=== PATIENT | male | born 1975 | race Caucasian/White ===

== ENCOUNTER 2016-09-13 09:11 | Emergency (ER) | payer SELFPAY ==
[~2016-09-13] VITALS: Ht 172.7 cm; Wt 61.0 kg
[~2016-09-13 09:11] MED LIST: CYCL-36 PO; HYDR-3533 PO; MEDR4PAK3 PO; ZOFR4TAB3 SL
[2016-09-13 09:13] VITALS: BP 120/67; PULSE 106; RESP 20; TEMP 98.2; O2SAT 96
--- NOTE | 2016-09-13 10:21 | PD ---
HPI Chief Complaint: Back/ Neck Pain or Injury Time Seen by Provider: 10:21 Travel History International Travel<30 days: No Contact w/Intl Traveler<30days: No Traveled to known affect area: No History of Present Illness HPI 41-year-old male presents to the emergency Department with complaint of midline low back pain and left-sided low back pain that radiates down the back of his left leg. He has history of low back pain with similar symptoms. He denies any recent injury. Reports heavy lifting and straining that exacerbated his back pain. Denies IV drug use or cancer. Denies fever, chills, nausea, vomiting. Denies paresthesias, loss of sensation, decreased range of motion, decreased strength to bilateral lower extremities. Reports the bleeding with a limp to his left leg. Has not taken any medications or drainage from his to alleviate his symptoms. No known allergies. Denies significant past medical history. No other modifying factors or associated signs and symptoms. PFSH Past Medical History Gastrointestinal Disorders: Yes Ulcer: Yes (STOMACH ULCERS ) Tetanus Vaccination: > 5 Years Social History Alcohol Use: Yes Tobacco Use: Yes (PACK A DAY ) Substance Use: No Allergies-Medications (Allergen,Severity, Reaction): Coded Allergies: No Known Allergies (Unverified , 09/13/16) Reported Meds & Prescriptions Reported Meds & Active Scripts Active Ibuprofen 800 Mg Tab 800 Mg PO Q6HR PRN Robaxin (Methocarbamol) 500 Mg Tab 500 Mg PO QID PRN Review of Systems Except as stated in HPI: all other systems reviewed are Neg Physical Exam Narrative GENERAL: Well-nourished, well-developed male patient, in no acute distress; afebrile, nontoxic-appearing SKIN: Warm and dry. HEAD: Atraumatic. Normocephalic. EYES: Pupils equal and round. No scleral icterus. No injection or drainage. ENT: Mucosa pink and moist. Airway patent. NECK: Trachea midline. CARDIOVASCULAR: Regular rate. RESPIRATORY: No accessory muscle use. GASTROINTESTINAL: Flat. MUSCULOSKELETAL: Bilateral lower extremities supple and non-tense with 2+ pedal pulses and sensory intact; with full range of motion and 5/5 strength. 2 + DTRs bilaterally. Active dorsiflexion and extension of bilateral feet. Left straight leg raise is positive for low back pain. Ambulatory with left leg limp. Sitting up in bed at 90. No obvious deformities. No clubbing. No cyanosis. No edema. BACK: Midline point tenderness on palpation of the lumbar spine. No midline point tenderness on palpation of the thoracic or cervical spine. Tenderness on palpation of left iliosacral area. No obvious deformities. NEUROLOGICAL: Awake and alert. Oriented 3. No obvious cranial nerve deficits. Motor grossly within normal limits. Normal speech. Moves all extremities. 5/5 strength to all extremities. Sensory intact. PSYCHIATRIC: Appropriate mood and affect; insight and judgment normal. Data Data Last Documented VS Vital Signs Date Time Temp Pulse Resp B/P Pulse Ox O2 Delivery O2 Flow Rate FiO2 09/13/16 09:13 98.2 106 20 120/[address] Lumb Spine W/O Contrast (09/13/16 ) Methocarbamol (Robaxin) (09/13/16 11:00) Ibuprofen (Motrin) (09/13/16 11:00) MDM Medical Decision Making Medical Screen Exam Complete: Yes Emergency Medical Condition: Yes Medical Record Reviewed: Yes Differential Diagnosis Acute exacerbation of chronic low back pain, low back strain, left-sided sciatica Narrative Course 41-year-old male physical exam consistent with low back strain and low back pain with left-sided sciatica. Patient has midline point tenderness on palpation of the lumbar spine. He denies IV drug use, cancer. Denies fever, chills, nausea, vomiting. Patient is afebrile and nontoxic-appearing. He is ambulatory with a left-sided limp at the bedside. 1110: CT lumbar spine concludes Last [address] 09/13/16 0000 Signed Impressions: Service Date/Time: August 10:09 - CONCLUSION: 1. Degenerative disc disease as detailed above. There is abutment of the left S1 nerve root within the lateral recess. Clinical evaluation for left S1 radiculopathy suggested. Left S1 nerve root injection could be considered for pain relief if clinically appropriate. 2. Tiny bilateral nonobstructing renal calculi. Carlos Leigh Jr., MD I discussed the CT findings with the patient. Recommended for him to follow up outpatient with orthopedic. Discussed the bilateral nonobstructing renal calculi and he said he has history of renal calculi. A CT report was provided to the patient. Ibuprofen and Robaxin prescribed for home. Patient verbalizes understanding and agreement with treatment plan. Patient is medically cleared and stable for discharge. Discussed reasons to return to the emergency department. Instructed patient to follow up with primary care provider. Patient agrees with treatment plan. The patients vital signs are stable and the patient is stable for outpatient follow-up and treatment. Patient discharged home, stable and in no acute distress. Diagnosis Primary Impression: Low back strain Qualified Code: S39.012A - Low back strain, initial encounter Additional Impression: Low back pain with left-sided sciatica Qualified Code: M54.42 - Midline low back pain with left-sided sciatica, unspecified chronicity Referrals: Primary Care Physician Patient Instructions: Acute Low Back Pain (ED), General Instructions, Sciatica (ED) Departure Forms: Tests/Procedures, Work Release Enter return to work date: Sep 17, 2016 Additional Instructions: Tylenol or ibuprofen as directed and as needed to reduce pain Robaxin as prescribed for muscle spasms Get adequate rest Ice and/or heating pad to affected area to reduce pain Avoid aggravating activity; increase activity as tolerated Follow-up with primary care provider Return to the emergency department immediately with worsening symptoms Med/Other Pt SpecificInfo: Prescription(s) given Scripts Ibuprofen 800 Mg [id number] Mg PO Q6HR PRN (PAIN) #30 TAB Ref 0 Prov:Falguni Pérez 09/13/16 Methocarbamol (Robaxin)500 Mg [id number] Mg PO QID PRN (MUSCLE SPASM) #30 TAB Ref 0 Prov:Falguni Pérez 09/13/16 Disposition: 01 DISCHARGE HOME Condition: Stable Falguni Pérez Sep 13, 2016 10:21
[2016-09-13] MEDS ORDERED: IBUP800T23 PO (10:49)
[2016-09-13] MEDS ORDERED: ROBA500T PO (10:49)
--- NOTE | 2016-09-13 10:53 | RADRPT ---
EXAM DATE/TIME: 09/13/2016 10:09 [facility] COMPARISON: No previous studies available for comparison. INDICATIONS : Worsening lower back pain. No known trauma. RADIATION DOSE: 35.86 CTDIvol (mGy) MEDICAL HISTORY : None SURGICAL HISTORY : None. ENCOUNTER: Initial ACUITY: 3 days PAIN SCALE: 6/10 LOCATION: Bilateral lumbar TECHNIQUE: Volumetric scanning of the lumbar spine was performed. Multiplanar reconstructions in the sagittal, coronal and oblique axial planes were performed. Using automated exposure control and adjustment of the mA and/or kV according to patient size, radiation dose was kept as low as reasonably achievable t o obtain optimal diagnostic quality images. FINDINGS: VERTEBRAE: Normal vertebral body height. ALIGNMENT: No evidence of subluxation. Bilateral 1-2 mm nonobstructing renal calculi. T12-L1: The thecal sac has a normal diameter. No evidence of disc bulge or protrusion. The neural foramina are patent bilaterally. L1-L2: The thecal sac has a normal diameter. No evidence of disc bulge or protrusion. The neural foramina are patent bilaterally. L2-L3: The thecal sac has a normal diameter. No evidence of disc bulge or protrusion. The neural foramina are patent bilaterally. L3-L4: The thecal sac has a normal diameter. No evidence of disc bulge or protrusion. The neural foramina are patent bilaterally. L4-L5: There is a minimal broad-based disc bulge. Lateral recesses, central canal, and neural foramen are pa tent. Facet joints are unremarkable. L5-S1: There is a broad-based disc bulge eccentric to the left which abuts the S1 nerve root within the late ral recess. Right lateral recess and central canal are patent. Neural foramina are patent. CONCLUSION: 1. Degenerative disc disease as detailed above. There is abutment of the left S1 nerve root within th e lateral recess. Clinical evaluation for left S1 radiculopathy suggested. Left S1 nerve root injecti on could be considered for pain relief if clinically appropriate. 2. Tiny bilateral nonobstructing renal calculi. Carlos Leigh Jr., MD on September 13, 2016 at 10:40 Board Certified Radiologist. This report was verified electronically.
[2016-09-13] MEDS ORDERED: IBUPROFEN 800 MG TAB PO ONE (11:00)
[2016-09-13] MEDS ORDERED: METHOCARBAMOL 500 MG TAB PO ONE (11:00)
== END 2016-09-13 11:41 | disposition home or self-care (01) ==
LOC: NEPB 09:11
DX: S39.012A Strain of muscle, fascia and tendon of lower back, initial encounter (principal); M54.42 Lumbago with sciatica, left side; F17.200 Nicotine dependence, unspecified, uncomplicated; Z87.19 Personal history of other diseases of the digestive system; Z87.442 Personal history of urinary calculi; X50.0XXA Overexertion from strenuous movement or load, initial encounter
CPT/HCPCS: 72131

== ENCOUNTER 2016-10-14 19:42 | Emergency (ER) | payer OTHER ==
[~2016-10-14] VITALS: Ht 175.3 cm; Wt 70.0 kg
[~2016-10-14 19:42] MED LIST changes: -CYCL-36 PO; -HYDR-3533 PO; +IBUP800T23 PO; -MEDR4PAK3 PO; +ROBA500T PO; -ZOFR4TAB3 SL
[2016-10-14 19:50] VITALS: BP 131/79; PULSE 95; RESP 18; TEMP 98.3; O2SAT 97
[2016-10-14] MEDS ORDERED: ORPHENADRINE INJ 60 MG/2 ML AMP IM ONE (20:00)
[2016-10-14] MEDS ORDERED: KETOROLAC TROMETHAMINE 60 MG/2 ML (IM) VIAL IM ONE (20:00)
[2016-10-14] MEDS ORDERED: ACET1CAP18 PO (20:00)
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
[2016-10-14] MEDS ORDERED: ROBA750T PO (20:45)
[2016-10-14] MEDS ORDERED: DICL50TA PO (20:45)
== END 2016-10-14 21:00 | disposition home or self-care (01) ==
LOC: NEPC 19:42
DX: M54.42 Lumbago with sciatica, left side (principal); F17.210 Nicotine dependence, cigarettes, uncomplicated; V43.62XA Car passenger injured in collision with other type car in traffic accident, initial encounter; Y93.89 Activity, other specified; Y92.414 Local residential or business street as the place of occurrence of the external cause; Y99.9 Unspecified external cause status
CPT/HCPCS: 72100; 96372; 99284; J1885; J2360

== ENCOUNTER 2017-04-07 08:21 | Emergency (ER) | payer SELFPAY ==
[~2017-04-07] VITALS: Ht 175.3 cm; Wt 70.0 kg
[~2017-04-07 08:21] MED LIST changes: +ACET1CAP18 PO; +DICL50TA PO; -IBUP800T23 PO; -ROBA500T PO; +ROBA750T PO
[2017-04-07 08:30] VITALS: BP 164/96; PULSE 88; RESP 15; TEMP 98.7; O2SAT 99
--- NOTE | 2017-04-07 08:44 | PD ---
HPI Chief Complaint: Oral / Dental Pain or Problem Time Seen by Provider: 08:37 Travel History International Travel<30 days: No Contact w/Intl Traveler<30days: No Traveled to known affect area: No History of Present Illness HPI 42-year-old male patient presents to the ER today because he states that he started having swelling in his left maxillary molar area and over the last 3 days, his face has become swollen. He thinks he has a dental abscess in that area. He denies any previous history of abscesses. He denies any other issues other he did state he may have had a subjective fever yesterday. He denies any difficulty swallowing or breathing. Modifying Factors: None Associated Signs & Symptoms: Toothache, left facial swelling Risk Factors: None PFSH Past Medical History Diminished Hearing: No Gastrointestinal Disorders: Yes (ULCERS) Musculoskeletal: Yes (CHRONIC BACK PAIN) Ulcer: Yes (STOMACH ULCERS ) Social History Alcohol Use: Yes (2-3 BEERS) Tobacco Use: Yes (1PPD) Substance Use: Yes (MARIJUIANA OCCASIONALLY) Allergies-Medications (Allergen,Severity, Reaction): Coded Allergies: No Known Allergies (Unverified , 04/07/17) Reported Meds & Prescriptions Reported Meds & Active Scripts Active Review of Systems Except as stated in HPI: all other systems reviewed are Neg Physical Exam Narrative GENERAL: Well-developed middle age patient currently in mild distress. Awake and oriented 3. SKIN: Focused skin assessment warm/dry. HEAD: Atraumatic. Normocephalic. There is mild edema that is generalized and diffuse over the left face. EYES: Pupils equal and round. No scleral icterus. No injection or drainage. ENT: No nasal bleeding or discharge. Mucous membranes pink and moist. DENTAL: No loose or chipped teeth. No malocclusion. There is notable palpable fluctuant area over the left maxillary molar which is tender to palpation, above a severely carried tooth. Mild surrounding gingival edema without fluctuance. NECK: Trachea midline. No JVD. No submandibular swelling, tenderness, or masses. CARDIOVASCULAR: Regular rate and rhythm. No murmur appreciated. RESPIRATORY: No accessory muscle use. Clear to auscultation. Breath sounds equal bilaterally. GASTROINTESTINAL: Abdomen soft, non-tender, nondistended. Hepatic and splenic margins not palpable. MUSCULOSKELETAL: No obvious deformities. No clubbing. No cyanosis. No edema. NEUROLOGICAL: Awake and alert. No obvious cranial nerve deficits. Motor grossly within normal limits. Normal speech. PSYCHIATRIC: Appropriate mood and affect; insight and judgment normal. Data Data Last Documented VS Vital Signs Date Time Temp Pulse Resp B/P (MAP) Pulse Ox O2 Delivery O2 Flow Rate FiO2 04/07/17 08:30 98.7 88 15 164/96 (118) 99 Orders Orders Lidocaine 2% Inj (Xylocaine 2% Inj) (04/07/17 08:45) MDM Medical Decision Making Medical Screen Exam Complete: Yes Emergency Medical Condition: Yes Medical Record Reviewed: Yes Differential Diagnosis Gingivitis versus dental abscess versus dental vinay Narrative Course There are no signs that there is underlying submandibular abscess or significant facial cellulitis. It appears that this is a small dental abscess notable on the gingiva. Dental abscess was drained by me in the ER. He reports pain relief with a dental abscess drainage. At this point, my plan would be to give him antibiotics and he can continue his Aleve which she has been taking for pain. Follow-up with dentist. Return for any worsening in pain , swelling, fevers, and as needed. The plan has been discussed with him and he states understanding. Procedures Procedure Narrative INCISION AND DRAINAGE OF ABSCESS: A subcutaneous wheal of 2 % Xylocaine with a total number 0.5 mL was used to anesthetize the area. The area was properly anesthetized. A number small scalpel was used to make a 0.25-cm incision across the area of the dental abscess. The abscess was drained of pus. Patient states significant pressure and pain relief. He tolerated procedure well. Diagnosis Primary Impression: Dental abscess Med/Other Pt SpecificInfo: Prescription(s) given Scripts Penicillin V Potassium (Penicillin V Potassium) 500 Mg Tab 500 MG PO Q6H for Infection for 7 Days, #28 TAB 0 Refills Prov: Joel Blanco MD 04/07/17 Disposition: 01 DISCHARGE HOME Condition: Stable Joel Blanco MD Apr 07, 2017 08:44
[2017-04-07] MEDS ORDERED: LIDOCAINE HCL 2% 50 ML VIAL INFIL ONE (08:45)
[2017-04-07] MEDS ORDERED: PENI500T PO (09:04)
== END 2017-04-07 09:19 | disposition home or self-care (01) ==
LOC: NEPE 08:21
DX: K04.7 Periapical abscess without sinus (principal); F17.200 Nicotine dependence, unspecified, uncomplicated
CPT/HCPCS: 41800